=== PATIENT | female | born 1975 | race Caucasian/White ===

== ENCOUNTER → 2021-02-01 08:44 | Outpatient (BNVA) | payer SELFPAY | PROVIDERS: Family Provider Family Medicine; PCP Family Medicine; Visit Provider Obstetrics & Gynecology | DX: N89.8 Other specified noninflammatory disorders of vagina (principal); N83.292 Other ovarian cyst, left side | CPT/HCPCS: 76856; 87481; 87512; 87798; 87799 ==

== ENCOUNTER 2023-01-26 13:02 | Outpatient (CLI) | payer MEDICAID, SELFPAY ==
--- NOTE | 2023-01-26 13:08 | MM_ITS ---
WS: [id number] BILATERAL 3D TOMOSYNTHESIS DIGITAL SCREENING MAMMOGRAPHY WITH CAD CLINICAL INFORMATION: SCREENING HISTORY: Screening mammogram. Bilateral breast pain and soreness. COMPARISON: January 26, 2017 TECHNIQUE: Bilateral CC and MLO views. FINDINGS: Scattered fibroglandular densities bilaterally. No suspicious focal mass, asymmetry, calcifications, or architectural distortion. No evidence of malignancy. Vascular calcification. MM/[place] [id number] IMPRESSION: BI-RADS: 2-Benign FOLLOW UP: 1 Year Follow-up Recommend return to annual screening mammography.
== END 2023-01-26 13:03 | disposition home or self-care (01) ==
PROVIDERS: Family Provider Family Medicine; PCP Family Medicine; Visit Provider Obstetrics & Gynecology
DX: Z12.31 Encounter for screening mammogram for malignant neoplasm of breast (principal)
CPT/HCPCS: 77063; 77067

== ENCOUNTER 2023-02-27 15:44 | Emergency (ER) | payer MEDICAID, SELFPAY ==
[2023-02-27 15:50] VITALS: BP 120/73; PULSE 72; RESP 16; TEMP 36.7; O2SAT 98
--- NOTE | 2023-02-27 16:11 | W.ED.CHESTPA ---
HPI - Chest Pain General: Chief Complaint: Chest Pain Stated Complaint: chemo pt/jaw/tongue pain Time Seen by Provider: 02/27/23 16:06 Source: patient Mode of arrival: ambulatory History of Present Illness: 47-year-old female presents emergency room with complaint of swelling in her tongue and mouth jaw discomfort. She states is gotten worse today she was recently diagnosed with ovarian cancer. She underwent hysterectomy and bilateral oophorectomy and subsequently started chemotherapy she had a reaction to the chemotherapy and then reported having had anaphylactic shock receiving subcu epinephrine and this was in [place].. She sees a doctor cindi there. She was monitored overnight she got given a different medication had a mild reaction to that and was given Benadryl and evidently completed it today watched overnight she was discharged a plan in route home began to feel swelling in her mouth and tongue and presented to the emergency room she also reporting some jaw discomfort no chest pain no tightness of breath. Onset (ago): hour(s) Prior episodes: Yes Relieving factors: nothing Exacerbating factors: nothing Associated symptoms: Deny abdominal pain, diaphoresis, dyspnea, fever(s), leg edema, nausea, palpitations, sense of impending doom, syncope or vomiting Treatment prior to arrival: none Review of Systems Const: Denies: fever(s), chills, fatigue, malaise or diaphoresis ENMT: Denies: throat pain, ear or mastoid pain, nasal discharge or nasal congestion Card: Denies: chest pain, palpitations, irregular heart rhythm, edema, swelling of feet/ankles or syncope Resp: Denies: dyspnea GI: Denies: abdominal pain, nausea or vomiting : Denies: flank pain, difficulty voiding, dysuria, urinary frequency or urinary urgency Skin/Breast: Denies: rash or pruritus [facility] ED PFSH: Medical History (Updated 02/27/23 @ 17:36 by Yaya Amaya DO) Dysmenorrhea Endometriosis Metrorrhagia Ovarian cancer Surgical History (Updated 02/27/23 @ 16:32 by Yaya Amaya DO) History of hysterectomy with bilateral oophorectomy History of tonsillectomy Family History Family/Other Hypertension paternal aunt Leukemic reticuloendotheliosis paternal aunt Colon cancer paternal aunt Aneurysm paternal aunt Family/Other Hypertension paternal uncle Stroke paternal great grandmother Family history of thyroid problem paternal aunt Leukemic reticuloendotheliosis paternal uncle Father Family history of thyroid problem Cancer liver Grandmother Heart disease maternal Grandfather Heart disease paternal Brain tumor maternal grandfather Mother Aneurysm Denies family history of Diabetes Clotting disorder Hyperlipidemia Chronic kidney disease (CKD) Anesthesia complication Bleeding disorder Social History Smoking and tobacco status: never smoked Alcohol intake: current Alcohol intake frequency: few times a month Alcohol type: beer and wine Physical Exam Const: COMMON NORMALS: no acute distress GENERAL APPEARANCE: cooperative and comfortable ORIENTATION/CONSCIOUSNESS: Yes awake, Yes oriented to person, Yes oriented to place and Yes oriented to time HENMT: COMMON NORMALS: normocephalic, atraumatic and hearing grossly normal bilaterally HEAD & SCALP: normocephalic and atraumatic MOUTH: Normal oral and palatal mucosa present, lip normal and tongue normal Resp: COMMON NORMALS: normal respiratory effort, No retractions, No use of accessory muscles and clear to auscultation bilaterally AUSCULTATION: clear to auscultation bilaterally Cardio: COMMON NORMALS: regular rate, regular rhythm and No murmurs present (Cardio) RATE: regular rate RHYTHM: regular rhythm GI: COMMON NORMALS: Soft to palpation and No hepatosplenomegaly present AUSCULTATION: Yes normoactive bowel sounds PALPATION: Yes Soft to palpation, No Tenderness to palpation present (GI), No Guarding due to palpation present (GI) and Yes No hepatosplenomegaly present Extremity: COMMON NORMALS: normal to inspection, capillary refill normal, no clubbing, cyanosis or edema, no calf tenderness and no pedal edema Neuro: SENSORIUM/ORIENTATION: Yes oriented to person, Yes oriented to place and Yes oriented to time Skin: COMMON NORMALS: no rashes or lesions noted GENERAL SKIN EXAM: no rashes or lesions noted Course Vital Signs: Vital signs: Vital Signs Temperature 98.0 F 02/27/23 15:50 Pulse Rate 64 02/27/23 18:03 Respiratory Rate 16 02/27/23 18:03 Blood Pressure 121/60 02/27/23 18:03 Pulse Oximetry 97 02/27/23 18:03 Oxygen Delivery Me thod 02/27/23 17:02 MDM - Chest Pain Medical Decision Making Patient in no acute distress no significant swelling of lips gums oropharynx or tongue at this time. She is feeling somewhat better she is on a Decadron taper which I think accounts for her elevated white count. She has no sign of any further reaction to the medications. Continue the steroid taper she can also use antihistamines as needed she should contact her oncology team first thing on Thursday if she has any worsening or change symptoms return to the emergency room. Medical Records I reviewed the patient's medical records. Lab Data I reviewed the patient's lab results. 02/27/23 16:20 02/27/23 16:20 Laboratory Results WBC 24.4 10^3/uL (4.0-10.0) H 02/27/23 16:20 RBC 4.66 10^6/uL (4.1-5.3) 02/27/23 16:20 Hgb 13.0 g/dL (11.5-15.3) 02/27/23 16:20 Hct 41.3 % (37.0-47.0) 02/27/23 16:20 MCV 88.6 fl (81-99) 02/27/23 16:20 MCH 27.9 pg (28.0-34.0) L 02/27/23 16:20 MCHC 31.5 g/dL (30.0-36.0) 02/27/23 16:20 RDW 14.8 % (12.1-15.1) 02/27/23 16:20 Plt Count 333 10^3/cmm (130-400) 02/27/23 16:20 MPV 11.9 fL (7.4-10.4) H 02/27/23 16:20 Neut % (Auto) 93.2 % 02/27/23 16:20 Lymph % (Auto) 4.2 % 02/27/23 16:20 [place] % (Auto) 1.6 % 02/27/23 16:20 Eos % (Auto) 0.0 % 02/27/23 16:20 Baso % (Auto) 0.2 % 02/27/23 16:20 Neut # (Auto) 22.71 10^3/uL (1.8-7.7) H 02/27/23 16:20 Lymph # (Auto) 1.0 10^3/uL (0.8-4.8) 02/27/23 16:20 [place] # (Auto) 0.4 10^3/uL (0.2-0.9) 02/27/23 16:20 Eos # (Auto) 0.0 10^3/uL (0.0-0.8) 02/27/23 16:20 Baso # (Auto) 0.1 10^3/uL (0.0-0.1) 02/27/23 16:20 Nucleated RBC % (auto) 0 % 02/27/23 16:20 Nucleated RBCs # 0.0 /100WBC 02/27/23 16:20 Sodium 143 mmol/L (136-145) 02/27/23 16:20 Potassium 4.2 mmol/L (3.5-5.1) 02/27/23 16:20 Chloride 105 mmol/L (98-107) 02/27/23 16:20 Carbon Dioxide 23 mmol/L (22-29) 02/27/23 16:20 Anion Gap 19.2 (5-19) H 02/27/23 16:20 BUN 13 mg/dL (6-20) 02/27/23 16:20 Creatinine 0.5 mg/dL (0.5-0.9) 02/27/23 16:20 GFR Calculation 132.2 mL/min (90-130) H 02/27/23 16:20 Glucose 115 mg/dL (65-115) 02/27/23 16:20 Calculated Osmolality 297 mOsm/kg (285-295) H 02/27/23 16:20 Calcium 10.2 mg/dL (8.5-10.5) 02/27/23 16:20 Total Bilirubin 0.2 mg/dL (0.15-1.2) 02/27/23 16:20 AST 15 U/L (0-32) 02/27/23 16:20 ALT 18 U/L (0-33) 02/27/23 16:20 Alkaline Phosphatase 75 U/L (35-105) 02/27/23 16:20 Total Protein 8.2 g/dL (6.6-8.7) 02/27/23 16:20 Albumin 5.6 g/dL (3.5-5.2) H 02/27/23 16:20 Globulin 2.6 g/dL (1.3-4.6) 02/27/23 16:20 Urine Color Light yellow (Yellow) 02/27/23 17:26 Urine Appearance Clear (CLEAR) 02/27/23 17:26 Urine pH 7 (5-7) 02/27/23 17:26 Ur Specific [place] 1.005 (1.005-1.030) 02/27/23 17:26 Urine Protein Neg (Negative) 02/27/23 17:26 Urine Glucose (UA) Norm (Normal) 02/27/23 17:26 Urine Ketones Negative (Negative) 02/27/23 17:26 Urine Blood Neg (Negative) 02/27/23 17:26 Urine Nitrate Negative (Negative) 02/27/23 17:26 Urine Bilirubin Neg (Negative) 02/27/23 17:26 Urine Urobilinogen Norm mg/dL (Negative) 02/27/23 17:26 Ur Leukocyte Esterase Negative (Negative) 02/27/23 17:26 Discharge Plan Discharge Patient Disposition: Home Clinical Impression: Ovarian cancer, Medication reaction Condition: Stable Prescriptions: New hydroxyzine HCl 25 mg tablet 25 mg PO Q6H PRN (Reason: itching/swelling) Qty: 20 0RF No Action ondansetron HCl 8 mg tablet 8 mg PO Q8H PRN (Reason: Nausea) prochlorperazine maleate 10 mg tablet 10 mg PO Q6H PRN (Reason: Nausea And Vomiting) lorazepam 0.5 mg Tablet 0.5 mg PO Q6H PRN (Reason: Anxiety) dexamethasone 4 mg tablet 8 mg PO BID Vitamin B-6 100 mg Tablet 50 mg PO DAILY Vitamin D3 25 mcg (1,000 unit) Capsule 25 mcg PO DAILY Discharge Orders: Discharge ED (Routine); Ordered 02/27/23 Ordered By: Yaya Amaya Referrals: Mita Lubin FNP [Primary Care Provider] - Discharge Diet: Usual diet Discharge Activity: Increase activity as tolerated Patient Instructions: Opioid Safety, Pain Management Activity Restrictions/Additional Instructions: Follow-up with your oncology team on Thursday. Continue the steroid taper use hydroxyzine as needed Print Language: Divehi Coding Level of Care Code ED [place] [employer] [employer] for Rinku Guerra
[2023-02-27 16:35] LABS: Basophils # 0.1 10^3/uL (0.0-0.1); Basophils % 0.2 %; Hematocrit 41.3 % (37.0-47.0); Lymphocytes % 4.2 %; Mean Corpuscular HGB Conc 31.5 g/dL (30.0-36.0); Mean Corpuscular Hemoglobin 27.9 pg (28.0-34.0); Mean Corpuscular Volume 88.6 fl (81-99); Mean Platelet Volume 11.9 fL (7.4-10.4); Monocytes # 0.4 10^3/uL (0.2-0.9); Monocytes % 1.6 %; Neutrophils # 22.71 10^3/uL (1.8-7.7); Neutrophils % 93.2 %; Nucleated Red Blood Cells % 0 %; Platelet Count 333 10^3/cmm (130-400); Red Blood Count 4.66 10^6/uL (4.1-5.3); Red Cell Distribution Width 14.8 % (12.1-15.1); White Blood Count 24.4 10^3/uL (4.0-10.0)
[2023-02-27] MEDS: ondansetron 2 mg/ML SDV 2 mL 4 MG IVP (16:39)
[2023-02-27] MEDS: dexamethasone 10 mg/mL INJ IVP (16:39)
[2023-02-27] MEDS: diphenhydrAMINE 50 mg/mL SDV 1mL IVP (16:39)
[2023-02-27 16:56] LABS: Alanine Aminotransferase 18 U/L (0-33); Albumin Level 5.6 g/dL (3.5-5.2); Alkaline Phosphatase 75 U/L (35-105); Anion Gap 19.2 (5-19); Aspartate Amino Transferase 15 U/L (0-32); Blood Urea Nitrogen 13 mg/dL (6-20); Calcium 10.2 mg/dL (8.5-10.5); Carbon Dioxide 23 mmol/L (22-29); Chloride 105 mmol/L (98-107); Globulin 2.6 g/dL (1.3-4.6); Glomerular Filtration Rate 132.2 mL/min (90-130); Glucose 115 mg/dL (65-115); Osmolality Calculated 297 mOsm/kg (285-295); Potassium 4.2 mmol/L (3.5-5.1); Sodium 143 mmol/L (136-145); Total Bilirubin 0.2 mg/dL (0.15-1.2); Total Protein 8.2 g/dL (6.6-8.7)
[2023-02-27 17:02] VITALS: BP 134/75; PULSE 55; RESP 16; O2SAT 100
[2023-02-27 17:39] LABS: Add Urine Microscopic? NO; Charge for UA Resulting for Rev
[2023-02-27 18:03] VITALS: BP 121/60; PULSE 64; RESP 16; O2SAT 97
[2023-02-27 19:01] LABS: Bilirubin Urine Neg (Negative); Blood Urine Neg (Negative); Glucose Urine UA Norm (Normal); Ketones Urine Negative (Negative); Leukocyte Esterase Urine Negative (Negative); Nitrate Urine Negative (Negative); Protein Urine Neg (Negative); Specific Gravity, Urine 1.005 (1.005-1.030); Urine Appearance Clear (CLEAR); Urine Color Light yellow (Yellow); Urobilinogen Urine Norm (Negative); pH Urine 7 (5-7)
== END 2023-02-27 18:04 | disposition home or self-care (01) ==
PROVIDERS: Emergency Provider Family Medicine; PCP Nurse Practitioner Family
DX: T88.7XXA Unspecified adverse effect of drug or medicament, initial encounter (principal); T50.905A Adverse effect of unspecified drugs, medicaments and biological substances, initial encounter; C56.9 Malignant neoplasm of unspecified ovary; Z92.21 Personal history of antineoplastic chemotherapy; X58.XXXA Exposure to other specified factors, initial encounter
CPT/HCPCS: 80053; 81003; 85025; 96374; 96375; 99284; J1100; J1200; J2405

== ENCOUNTER 2024-04-06 10:00 | Outpatient (CLI) | payer MEDICAID, SELFPAY ==
--- NOTE | 2024-04-06 10:08 | MM_ITS ---
WS: [id number] BILATERAL SCREENING DIGITAL TOMOSYNTHESIS MAMMOGRAM WITH CAD HISTORY: SCREENING COMPARISON: 01/26/2023, 01/26/2017 Bilateral CC and MLO views with tomosynthesis and synthetic mammography submitted. Computer aided det ection analyzed. Breast composition: There are scattered areas of fibroglandular density. No suspicious masses, microc alcifications or architectural distortion. MM/[place] [id number] IMPRESSION: BI-RADS: 1-Negative FOLLOW UP: 1 Year Follow-up
== END 2024-04-06 10:01 | disposition home or self-care (01) ==
LOC: RAD 10:01
PROVIDERS: PCP Nurse Practitioner Family; Visit Provider Nurse Practitioner Family
DX: Z12.31 Encounter for screening mammogram for malignant neoplasm of breast (principal)
CPT/HCPCS: 77063; 77067

== ENCOUNTER 2025-08-01 08:54 | Oncology outpatient (recurring) (ONCR) | payer MEDICAID, SELFPAY | END 2025-08-22 23:59 | disposition home or self-care (01) | PROVIDERS: PCP Nurse Practitioner Family; Visit Provider Obstetrics & Gynecology | DX: Z45.2 Encounter for adjustment and management of vascular access device (principal); Z95.828 Presence of other vascular implants and grafts | CPT/HCPCS: 96523 ==

== ENCOUNTER 2025-08-28 09:47 | Outpatient (CLI) | payer MEDICAID, SELFPAY ==
--- NOTE | 2025-08-28 09:52 | MM_ITS ---
WS: [id number] BILATERAL SCREENING DIGITAL TOMOSYNTHESIS MAMMOGRAM WITH CAD HISTORY: SCREENING COMPARISON: 04/06/2024, 01/26/2023, Bilateral CC and MLO views with tomosynthesis and synthetic mammography submitted. Computer aided detection analyzed. Breast composition: There are scattered areas of fibroglandular density. No suspicious masses, microcalcifications or architectural distortion. MM/MM scr BI tomosynthesis [id number] IMPRESSION: BI-RADS: 1 - Negative. FOLLOW UP: 1 Year Follow-up
== END 2025-08-28 09:48 | disposition home or self-care (01) ==
LOC: RAD 09:48
PROVIDERS: PCP Nurse Practitioner Family; Visit Provider Nurse Practitioner Family
DX: Z12.31 Encounter for screening mammogram for malignant neoplasm of breast (principal); R92.323 Mammographic fibroglandular density, bilateral breasts
CPT/HCPCS: 77063; 77067